=== PATIENT | female | born 1960 | race Caucasian/White ===

== ENCOUNTER 2019-02-05 12:32 | Inpatient (IN) | payer OTHER ==
[~2019-02-05] VITALS: Ht 154.9 cm; Wt 74.4 kg
[2019-02-05 15:21] VITALS: BP 117/81
[2019-02-05 16:31] LABS: HEMATOCRIT 38.8 % (37.0-47.0); MCH 28.6 pg (26.0-34.0); MCHC 33.6 g/dL (28.0-37.0); MCV 85.1 fL (80.0-100.0); RBC 4.56 mil/uL (4.20-5.00); RDW 13.8 % (10.5-14.5); WBC 9.5 thou/uL (4.0-11.0)
[2019-02-05 16:39] LABS: CALCIUM 9.1 mg/dL (8.5-10.1); CREATININE 0.9 mg/dL (0.6-1.0)
[2019-02-05] MEDS ORDERED: ALBUTEROL2.5 MG/31 INH (17:55)
[2019-02-05] MEDS ORDERED: ABILIFY 5 MG TAB5 MG PO (17:56)
[2019-02-05] MEDS ORDERED: CLONAZEPAM 0.50.5 M1 PO (17:57)
[2019-02-05] MEDS ORDERED: LASIX 40 MG TAB40 M2 PO (17:58)
[2019-02-05] MEDS ORDERED: METOPROLOL SUCC50 MG PO (18:01)
[2019-02-05] MEDS ORDERED: PRILOSEC 20 MG20 MG PO (18:12)
[2019-02-05] MEDS ORDERED: SPIRIVA INH (18:15)
[2019-02-05] MEDS ORDERED: TRAZODONE HCL100 MG PO ×2 (18:16→18:18)
[2019-02-05] MEDS ORDERED: VENLAFAXINE HC150 MG PO (18:19)
[2019-02-05 19:36] VITALS: BP 121/72
[2019-02-06 07:46] VITALS: BP 121/67
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
[2019-02-06 20:10] VITALS: BP 127/77
[2019-02-07 18:35] VITALS: BP 134/66
[2019-02-07 19:53] VITALS: BP 142/90
[2019-02-08 20:32] VITALS: BP 131/86
[2019-02-09 08:15] VITALS: BP 123/85
[2019-02-09 21:17] VITALS: BP 123/75
[2019-02-10 11:00] VITALS: BP 102/69
[2019-02-10 20:07] VITALS: BP 125/83
[2019-02-11 08:15] VITALS: BP 102/69
[2019-02-11 19:41] VITALS: BP 123/84
[2019-02-12 07:45] VITALS: BP 124/77
[2019-02-12 19:43] VITALS: BP 125/74
[2019-02-13] MEDS ORDERED: ALTACE5 MG PO (13:05)
[2019-02-13] MEDS ORDERED: PROZAC 10 MG CA10 MG PO (13:05)
[2019-02-13] MEDS ORDERED: ABILIFY 5 MG TAB5 M1 PO (13:06)
[2019-02-13] MEDS ORDERED: LASIX 20 MG TAB20 MG PO (13:07)
[2019-02-13] MEDS ORDERED: UNICOMPLEX M TA1 TA1 PO (13:08)
[2019-02-13] MEDS ORDERED: PROTONIX40 M1 PO (13:08)
[2019-02-13 13:35] VITALS: BP 125/74
--- NOTE | 2019-02-15 15:43 | D ---
[facility] [place] [address] DISCHARGE SUMMARY Name: ABELARDO DOZIER Room #: 528B-A [facility] IN M.R.#: [id number] Admission: 02/05/19 ������������������ Attend Phys: Parth Diamond DO Discharge: 02/13/19 ������������������ Date of : 58 Report #: [id number] THIS REPORT FOR: //name// CC: Parth DANIEL Physician staff DATE OF SERVICE: 02/13/2019 ATTENDING: Parth Diamond DO. CUT OFF SAW TENDER METAL AT THE TIME OF DISCHARGE: Brennon Olivier MD. DISCHARGE DIAGNOSES: As follows: Major depressive disorder, single episode, severe degree, much improved, borderline personality traits, nicotine dependence, vitamin D deficiency. Medical comorbidities include hypertension, COPD, stable on inhalers including ipratropium and DuoNeb. DISCHARGE PLAN: Activity level as tolerated. No alcohol, no illicit drugs, smoking was strongly discouraged. DISCHARGE MEDICATIONS: As follows: Ramipril 10 mg p.o. daily for hypertension, fluoxetine 10 mg p.o. daily for depression, Rx given 30 days, aripiprazole 5 mg p.o. daily as augmentation for depression and mood stabilizing agent, Lasix 20 mg p.o. daily for hypertension, Protonix 40 mg p.o. daily, multivitamin 1 tab p.o. daily. The patient takes [id number] vitamin D3 5000 international units p.o. daily so I will need to call her tomorrow about that. LABORATORY DATA: This admission, hematology done on the showed an H and H 13.0 and 38.8. White count 9.5, platelet count 301. Chemistries showed a vitamin D level of 27.8. Vitamin B12 level 45. Sodium 139, potassium 4.0, chloride 102, bicarbonate 31, BUN 18, creatinine 0.9, estimated GFR of 64, glucose 86, calcium 9.1, magnesium level 2.0. REASON FOR ADMISSION: The patient had an intentional suicide attempt several days before admission with several pills, suicidal over the weekend, did not tell anyone and then decided to come to the Emergency Room. HOSPITAL COURSE: The patient was admitted to the Geriatric Psychiatry Unit. Initially, she was focused on leaving, so we kept around though we had a couple of days of excessive impulse. When the patient got down to discussing things, this is an anniversary of a breakup year ago of a long-term relationship. She has been living with her mother. She is highly in debt. She has a relatively [facility] [address] [place] [address] DISCHARGE SUMMARY Name: ABELADRO DOZIER Room #: 528B-A [facility] IN ..#: [id number] Admission: 02/05/19 ������������������ Attend Phys: Parth Diamond DO Discharge: 02/13/19 ������������������ Date of : 58 Report #: [id number] estranged relationship with 3 adult children. Has some poor coping skills and she works at the [employer] in [place], [place], so we started her on Abilify, titrating from 2 to 5 mg p.o. daily. There was some history of bipolar spectrum illness, so we did this before adding antidepressant, fluoxetine 10 mg p.o. daily. The patient improved nicely, was not suicidal or homicidal on the day of discharge. We did have an extensive family meeting on the day of discharge. In fact, time spent on this was 45 minutes. The patient will do IOP at the [facility]. Plan for her to get psychiatric care through the group that does signature. I did fill out [place] paperwork for her and gave her a script for her new meds. PHYSICAL EXAMINATION: VITAL SIGNS: At discharge are as follows: Temperature 36.9, pulse 69, respirations 18, BP 125/74. MUSCULOSKELETAL: Normal gait and station. MENTAL STATUS EXAM: This is a well-developed, well-nourished female appearing stated age. Attention intact. Concentration intact. Speech is normal in rate and rhythm. Thought process is linear and goal oriented. Thought content focused on her job dealing with her mother whom she lives with. Mood and affect congruent, euthymic fair range. Denied hopelessness. Denied helplessness. Denies suicidal intent or plan and/or homicidal intent or plan. Memory not formally tested. Insight fair. Judgment fair. Fund of knowledge average range. Prognosis for this patient is fair. She maintains purely psychotherapeutic treatment compliance and keeps working through things as certainly she will not have immediate return to happiness. ��������������������������������������������� <ELECTRONICALLY SIGNED> ���������������������������������������� By: Parth Diamond DO ��������������������������������������������� 02/15/19 [id number] Parth Diamond DO /nt
== END 2019-02-13 16:00 | disposition home or self-care (01) | DRG 885 ==
LOC: SBH → EDBD → SBH 12:32
PROVIDERS: Internal Medicine; ADMIT Psychiatry & Neurology Psychiatry
DX: F33.2 Major depressive disorder, recurrent severe without psychotic features (principal); R45.851 Suicidal ideations; F60.3 Borderline personality disorder; E55.9 Vitamin D deficiency, unspecified; I10 Essential (primary) hypertension; J44.9 Chronic obstructive pulmonary disease, unspecified; F43.10 Post-traumatic stress disorder, unspecified; F17.210 Nicotine dependence, cigarettes, uncomplicated; Z79.899 Other long term (current) drug therapy; Z88.2 Allergy status to sulfonamides; Z88.8 Allergy status to other drugs, medicaments and biological substances; Z83.3 Family history of diabetes mellitus; Z82.49 Family history of ischemic heart disease and other diseases of the circulatory system; Z81.8 Family history of other mental and behavioral disorders
CPT/HCPCS: 10880